=== PATIENT | male | born 1995 | race Caucasian/White ===

== ENCOUNTER 2024-08-06 17:34 | Emergency (ER) | payer OTHER, SELFPAY ==
[2024-08-06] VITALS (24 sets, daily range): BP systolic 106–147; BP diastolic 69–110; PULSE 78–104; RESP 7–26; TEMP 36.9; O2SAT 93–100; BMI 26.0
--- NOTE | 2024-08-06 18:07 | ED_ITS ---
HPI - Arrhythmia/Palpitations General Chief Complaint: Arrhythmia/Palpitations Stated Complaint: Heart Flutter Time Seen by Provider: 08/06/24 17:46 History of Present Illness HPI narrative: This 29-year-old male comes in with atrial fibrillation and rapid ventricular response. He states that he has a family history of this and had a 1st episode when he was 21 years old. He has been cardioverted in the past. At age 25 he had an ablation and he has not had any recurrent events until now. He states that he rarely takes alcohol but did have some kind of reunion constitution party 2 days ago and did have 8 or 9 drinks over the course of the day. He reports that he exercises most every day without any difficulty. He is otherwise in good health. He does not report any chest pain, lightheadedness, or shortness of breath. He states that he knows that this started last evening as he could feel his heart being irregular at that time. Related Data Previous Rx's ?Medication ?Instructions ?Recorded azithromycin 250 mg tablet See Rx Instructions PO .COMPLEX #6 05/03/23 (Zithromax Z-Sukhdev) tabs prednisone 20 mg tablet 20 mg PO QDAY cough #12 tabs 05/03/23 apixaban 5 mg (74 tabs) tablets in See Rx Instructions PO .COMPLEX 08/06/24 a dose pack (ULURU DVT-PE Treat #74 ea 30D Start) Allergies Allergy/AdvReac Type Severity Reaction Status Date / Time No Known Drug Allergies Allergy Verified 05/03/23 17:39 Review of Systems Status of ROS: Reports: 10 or more systems reviewed and unremarkable except as noted in History and below Narrative: Constitutional: No fevers, no weight gain or loss. Eyes: No discharge. No vision changes. HENT: No congestion, no sore throat, no ear pain. Cardiovascular: No chest pain. Respiratory: No shortness of breath, no wheezes, no cough. Gastrointestinal: No abdominal pain, no vomiting, no diarrhea. Genitourinary: No dysuria, no hematuria. Musculoskeletal: Normal range of motion. Skin: No rashes, no pruritis. Neurological: No dizziness, weakness, sensory change, speech change. Endo/Heme/Allergies: No bruising or bleeding. No polydipsia. Pysch: no suicidality, no anxiety, no insomnia. All other systems reviewed and are negative. Exam Narrative: Exam Narrative: Constitutional: Well-developed, well-nourished, no acute distress. HEENT: Normocephalic, atraumatic. Neck: Normal range of motion. Nontender. Supple. Heart: Irregular. No murmurs. Tachycardia. Intact distal pulses. Lungs: Clear to auscultation. No chest discomfort. No wheezes, rhonchi, or rales. Abdomen: Normal bowel sounds. Nontender. No rebound tenderness. Genitalia: Deferred. Back: No midline tenderness. Normal range of motion. Extremities: Normal range of motion. No injury. Skin: Intact. No rash. Warm. No erythema or pallor. Neurologic: No altered sensation. No weakness. Alert and oriented. Psychiatric: No suicidality. No anxiety or depression. No insomnia. Nursing notes and vitals signs are reviewed. Const: Vital Signs, click to edit/add: Vital Signs - 24 hr 08/06/24 17:43 08/06/24 18:03 08/06/24 18:11 Temperature 98.5 F Pulse Rate 78 80 Pulse Rate [Right Pulse Oximeter] 96 Respiratory Rate 16 Blood Pressure 147/94 H Blood Pressure [Ri ght Upper Arm] 134/79 Pulse Oximetry 98 100 100 Oxygen Delivery Me od Room Air 08/06/24 18:15 08/06/24 18:19 08/06/24 18:28 Temperature Pulse Rate 80 87 90 Pulse Rate [Right Pulse Oximeter] Respiratory Rate Blood Pressure 116/90 H 127/110 H Blood Pressure [Ri ght Upper Arm] Pulse Oximetry 100 100 100 Oxygen Delivery Sd thod 08/06/24 18:30 08/06/24 18:32 08/06/24 18:33 Temperature Pulse Rate 89 89 86 Pulse Rate [Right Pulse Oximeter] Respiratory Rate Blood Pressure 123/71 Blood Pressure [Ri ght Upper Arm] Pulse Oximetry 100 100 98 [facility] 08/06/24 18:45 08/06/24 18:49 08/06/24 19:00 Temperature Pulse Rate 81 94 92 Pulse Rate [Right Pulse Oximeter] Respiratory Rate Blood Pressure 123/94 H Blood Pressure [Ri ght Upper Arm] Pulse Oximetry 98 100 98 Oxygen Delivery Sd thod 08/06/24 19:15 08/06/24 19:18 08/06/24 19:24 Temperature Pulse Rate 90 104 H 88 Pulse Rate [Right Pulse Oximeter] Respiratory Rate 20 10 L Blood Pressure 137/102 H 108/77 Blood Pressure [Ri ght Upper Arm] Pulse Oximetry 100 100 98 Oxygen Delivery Me thod 08/06/24 19:25 08/06/24 19:27 08/06/24 19:30 Temperature Pulse Rate 94 90 90 Pulse Rate [Right Pulse Oximeter] Respiratory Rate 24 22 26 H Blood Pressure 118/73 107/69 Blood Pressure [Ri ght Upper Arm] Pulse Oximetry 93 99 99 Oxygen Delivery Me thod 08/06/24 19:32 Temperature Pulse Rate 87 Pulse Rate [Right Pulse Oximeter] Respiratory Rate 7 L Blood Pressure 111/72 Blood Pressure [Ri ght Upper Arm] Pulse Oximetry 98 Oxygen Delivery Me thod Course Vital Signs Vital signs: Initial Vital Signs Temperature 98.5 F 08/06/24 17:43 Temperature Source Temporal Artery Scan 08/06/24 17:43 Pulse Rate 96 08/06/24 17:43 Pulse Rhythm Irregular 08/06/24 17:43 Pulse Strength 3+ Normal 08/06/24 17:43 Respiratory Rate 16 08/06/24 17:43 Blood Pressure 134/79 08/06/24 17:43 Blood Pressure Mean 97 08/06/24 17:43 Blood Pressure Position Sitting 08/06/24 17:43 Pulse Oximetry 98 08/06/24 17:43 Oxygen Delivery Method Room Air 08/06/24 17:43 Vital Signs Temperature 98.5 F 08/06/24 17:43 Pulse Rate 96 08/06/24 17:43 Respiratory Rate 16 08/06/24 17:43 Blood Pressure 134/79 08/06/24 17:43 Pulse Oximetry 98 08/06/24 17:43 Oxygen Delivery Method Room Air 08/06/24 17:43 Temperature 98.5 F 08/06/24 17:43 Pulse Rate 87 08/06/24 19:32 Respiratory Rate 7 L 08/06/24 19:32 Blood Pressure 111/72 08/06/24 19:32 Pulse Oximetry 98 08/06/24 19:32 Oxygen Delivery Method Room Air 08/06/24 17:43 Medications Administered Medications: Discontinued Medications Generic Name Dose Route Start Last Admin Trade Name Freq PRN Reason Stop Dose Admin Diltiazem HCl 20 mg 08/06/24 18:06 08/06/24 18:20 Diltiazem 5 Mg/Ml Inj IVP 08/06/24 18:07 20 mg ONCE ONE Administration Propofol 400 mg 08/06/24 19:11 08/06/24 19:34 Propofol 10 Mg/Ml Inj IVP 08/06/24 19:12 250 mg ONCE ONE Administration MDM - Arrhythmia/Palpitations MDM Narrative Medical decision making narrative: This patient comes in with atrial fibrillation and rapid ventricular response. He has had episodes of this in the past. He states that he noted his heart palpitating last evening and is quite certain this is when his symptoms started. An IV was established and labs are acquired. There are no significant findings and his labs that explain his current rate and rhythm. He did receive 20 mg of diltiazem which brought rate control but he continues in atrial fibrillation. The patient is interested in synchronized cardioversion. After acquiring informed consent the patient did receive propofol in the amount of [address] Chris reddy. 1 attempt of synchronized cardioversion at 150 joules of energy was successful to return him to normal sinus rhythm. The patient tolerated this procedure well. He did not need any respiratory support and maintained normal vital signs. He did receive an oral dose of Eliquis and a prescription for the next month. Lab Data Labs: Lab Results 08/06/24 Range/Units 18:10 WBC 7.24 (4.50-11.00) K/uL RBC 6.68 H (4.30-5.90) m/uL Hgb 19.4 H (13.5-17.5) gm/dL Hct 57.7 H (37.0-53.0) % MCV 86 (80-100) fL MCH 29 (26-34) pg MCHC 34 (32-36) gm/dL RDW Coeff of Zenon 12.2 (11.5-15.5) % Plt Count 214 (140-440) K/uL Neut % (Auto) 43.9 (42.0-72.0) % Lymph % (Auto) 41.6 (20-44) % Pender % (Auto) 6.1 (0.0-11.0) % Eos % (Auto) 8.1 H (0.0-7.0) % Baso % (Auto) 0.3 (0.0-3.0) % Neut # (Auto) 3.18 (1.7-7.0) K/uL Lymph # (Auto) 3.01 H (0.90-2.90) K/uL Pender # (Auto) 0.40 (0.00-0.90) K/UL Eos # (Auto) 0.60 H (0.00-0.50) K/uL Baso # (Auto) 0.02 (0.00-0.30) K/uL Abs Immat Gran (auto) 0.00 (0.00-0.30) K/uL Imm/Tot Granulo (auto) 0.0 % Sodium 141 (135-149) mmol/L Potassium 3.5 L (3.6-5.1) mmol/L Chloride 104 (96-114) mmol/L Carbon Dioxide 26 (20-32) mmol/L Anion Gap 11 (7-15) mEq/L BUN 28 H (5-24) mg/dL Creatinine 1.4 (0.5-1.5) mg/dL Estimated Creat Clear 102.46 Estimated GFR 71 ml/min Glucose 121 H (60-115) mg/dL Calcium 9.5 (8.4-10.6) mg/dL Magnesium 2.2 (1.5-2.6) mg/dL ECG Data Attestation: I personally reviewed and interpreted this ECG as follows: Interpretation: Atrial fibrillation with rapid ventricular response, rate is 157 beats per minute. There are no specific ST or T-wave abnormalities. Discharge Plan Discharge Clinical Impression: Atrial fibrillation with rapid ventricular response Patient Disposition: Home w/ Parent or Adult Condition: Improved Additional Instructions: Continue current plans. Follow up with Cardiology as needed. Return if symptoms are recurrent. Prescriptions: New Eliquis DVT-PE Treat 30D Start 5 mg (74 tabs) tablets,dose pack See Rx Instructions PO .COMPLEX Qty: 74 0RF Rx Instructions: orally per package directions No Action azithromycin [Zithromax Z-Sukhdev] 250 mg tablet See Rx Instructions PO .COMPLEX Qty: 6 0RF Rx Instructions: For 250 mg dose pack: take 500 mg today (day 1), then 250 mg for 4 days (days 2-5) PO prednisone 20 mg tablet 20 mg PO QDAY Qty: 12 0RF Rx Instructions: 3 po as single dose days 1-2, 2 po as single dose days 3-4, 1 po days 5-6, the discontinue. Follow Up/Referrals: Provider,Not a Local [Primary Care Provider] - Stand Alone Forms: [email or web address] Info Instructions
[2024-08-06 18:20] LABS: Basophils Absolute Auto 0.02 K/uL (0.00-0.30); Basophils Percent Auto 0.3 % (0.0-3.0); Eosinophils Percent Auto 8.1 % (0.0-7.0); Hematocrit 57.7 % (37.0-53.0); Hemoglobin* 19.4 gm/dL (13.5-17.5); Lymphocytes Absolute Auto 3.01 K/uL (0.90-2.90); Lymphocytes Percent Auto 41.6 % (20-44); Mean Corpuscular HGB Conc 34 gm/dL (32-36); Mean Corpuscular Hemoglobin 29 pg (26-34); Mean Corpuscular Volume 86 fL (80-100); Monocytes Percent Auto 6.1 % (0.0-11.0); Neutrophils Absolute Auto 3.18 K/uL (1.7-7.0); Neutrophils Percent Auto 43.9 % (42.0-72.0); Platelet Count* 214 K/uL (140-440); RDW Coefficient of Variation % 12.2 % (11.5-15.5); Red Blood Count 6.68 m/uL (4.30-5.90); White Blood Count* 7.24 K/uL (4.50-11.00)
[2024-08-06] MEDS: dilTIAZem 5 MG/ML inj 20 MG IVP (18:20)
[2024-08-06 18:24] LABS: Slide Review Reflex No
[2024-08-06 18:44] LABS: Chloride* 104 mmol/L (96-114); Sodium* 141 mmol/L (135-149)
[2024-08-06 18:45] LABS: Potassium* 3.5 mmol/L (3.6-5.1)
[2024-08-06 18:47] LABS: Creatinine* 1.4 mg/dL (0.5-1.5); Est. Creatinine Clearance* 102.46; Estimated Glomerular Filt Rate 71 ml/min
[2024-08-06 18:48] LABS: Anion Gap 11 mEq/L (7-15); Blood Urea Nitrogen* 28 mg/dL (5-24); Calcium* 9.5 mg/dL (8.4-10.6); Carbon Dioxide* 26 mmol/L (20-32); Glucose* 121 mg/dL (60-115); Magnesium* 2.2 mg/dL (1.5-2.6)
[2024-08-06] MEDS: PROPOFOL 10 MG/ML INJ 400 MG IVP (19:34)
[2024-08-06] MEDS: APIXABAN 5 MG TABLET 10 MG PO (20:00)
--- OUTSIDE RECORDS SUMMARY | 2024-08-07 00:04 | XMS_ITS | Clinical Summary ---
Author Organization [facility] Address [address] [place] [address] Care Team Providers Care Conductor Yard Name Role Phone Stuart Bowman MD Unavailable [phone] Jovanna Mendoza MD Primary Care Provider [phone] Allergies No known active allergies Medications loratadine (CLARITIN) 10 mg oral tablet TAKE 1 TABLET BY MOUTH EVERY DAY 30 tablet 11 02/10/2022 Active olopatadine 0.1% (PATANOL) 0.1 % Opht ophthalmic (EYE) solution INSTILL 1 DROP INTO EACH EYE TWICE A DAY 5 mL 3 02/10/2022 Active Active Problems Problem Noted Date Diagnosed Date Paroxysmal A-fib 07/28/2022 PAF (paroxysmal atrial fibrillation) 05/28/2022 Overview (05/28/2022): Added automatically from request for surgery [id number] Primary insomnia 10/24/2017 Social anxiety disorder 09/29/2017 Schizoaffective disorder, depressive type 2017 Persistent atrial fibrillation 05/27/2017 Overview (11/29/2018): S/p cardioversion, & LOOP - 2018 Nonischemic cardiomyopathy 04/22/2017 Overview (11/29/2018): 03/2017 EF decreased 45% echo 2018 nl EF Beth-Danlos syndromen partial Overview (11/29/2018): There is a note of this in the 2006 pediatric note, apparently evaluated by specialist when younger. May have partial syndrome Resolved Problems Problem Noted Date Diagnosed Date Resolved Date Psychosis 10/28/2017 11/04/2017 Suicidal ideation 09/25/2017 10/07/2017 Paroxysmal atrial fibrillation 06/07/2017 10/24/2017 Cardiology follow-up encounter 04/22/2017 10/24/2017 Family history of atrial fibrillation 04/22/2017 10/28/2017 Immunizations Name Administration Dates Next Due DTaP (Infanrix) 02/01/2002, 8,1997,05/30,1997 HIB 05/15/1998, 8,1997,04/03 HPV Quadrivalent 10/07/2014,03/14/2014, 3 Hep A Pediatric 03/12/2013,03/07/2012 Hep B Pediatric 1997,1997,1997 Influenza live intranasal (F luMist Quadrivalent) 03/12/2013,03/07/2012,03/04/2011,03/21 Influenza recombinant (FluBl ok Quadrivalent PF) 04/06/2017,03/14/2014,06/23/1998,05/15 MMR 11/04/2000,02/12/1998 Meningococcal MCV4P 03/12/2013,01/22/2008 Pfizer 12+ Yrs Monovalent CO VID Vaccine (purple cap) 05/02/2021 Polio IPV 02/01/2002, 8,1997,04/03 Polio OPV 1997 Tdap 11/30/2018,01/22/2008 Varicella 01/22/2008,02/12/1998 Family History Medical History Relation Comments Allergies Father Asthma Father High Cholesterol Father Irregular Heart Rhythm Father Afib Depression Maternal Grandfather Diabetes Maternal Grandfather Heart Disease Maternal Grandfather High Blood Pressure Maternal Grandfather High Cholesterol Maternal Grandfather Thyroid Disease Maternal Grandfather Coronary Heart Disease Maternal Grandmother Depression Maternal Grandmother Diabetes Maternal Grandmother High Blood Pressure Maternal Grandmother High Cholesterol Maternal Grandmother Irregular Heart Rhythm Maternal Grandmother Afib Stroke Maternal Grandmother Thyroid Disease Maternal Grandmother Irregular Heart Rhythm Mother Afib Asthma Paternal Grandfather Blood Disorder Paternal Grandfather Coronary Heart Disease Paternal Grandfather Heart Disease Paternal Grandmother Pacemaker Paternal Grandmother Relation Status Comments Father Alive Maternal Grandfather Maternal Grandmother (Age 80's) Mother Alive Other Alive Paternal Grandfather blood clott ing disorder Paternal Grandmother Alive Social History Tobacco Use Types Packs/Day Years Used Date Smoking Tobacco: Never Smokeless Tobacco: Never Tobacco Cessation:Counseling Given: Not Answered Comments:never Alcohol Use Standard Drinks/Week Comments Yes 0 (1 standard drink = 0.6 oz pur e alcohol) socially PHQ-2 Answer Date Recorded PHQ-2 Score 10 05/31/2018 Sex and Gender Information Value Date Recorded Sex Assigned at Not on file Legal Sex Male 7:36 AM CDT Gender Identity Not on file Sexual Orientation Not on file 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 Not on file Not on f ile Last Filed Vital Signs Vital Sign Reading Time Taken Comments Blood Pressure 124/84 11/11/2022 10:29 AM CDT ma nual Pulse 58 11/11/2022 10:29 AM CDT Temperature 36.2 C (97.1 F) 11/10/2022 5:10 PM CDT Respiratory Rate 21 07/28/2022 3:15 PM PATIENT SCHEDULING COORDINATOR Oxygen Saturation 99% 11/10/2022 5:10 PM CDT Inhaled Oxygen Concentration - - Weight 89.4 kg (197 lb 3.2 oz) 11/11/2022 10:29 AM CDT Height 195.6 cm (6' 5) 11/11/2022 10:29 AM CDT Body Mass Index 23.38 11/11/2022 10:29 AM CDT Plan of Treatment Health Maintenance Due Date Last Done Comments Hepatitis C Screening 1997 Anxiety Follow-Up (HATTIE-7) 1998 Depression Assessment (PHQ-2) 1998 COVID-19 Vaccine ( season) 2024 05/02/2021 Influenza Vaccine (#1) 2024 7, 03/14/2014, 03/12/2013, Additional history exists Adult Tetanus Booster 11/30/2028 11/30/2018, 008 RSV Vaccines (1 - 1-dose 75+ series) 01/28/2072 HPV Vaccine Completed 09/23/2016 (Prev iously completed), 10/07/2014, 03/14/2014, Additional history exists Pneumococcal Vaccine Aged Out No long er eligible based on patient's age to complete this topic Medical Devices Implanted Type Area Agronomy Instructor Device Identifier Shelf Expiration Date Model / Serial / Lot Perclose Prostyle - [id number] Implanted:Qty: 3 on 07/28/2022 by Adolfo Dao MD at [facility] Supply [employer] [id number] 04/16/2024 16786 -[id number] / [id number] [place] [address] R Advance Directives For more information, please contact: [phone] * Full Code (Latest Code Status on File) Date Activated Date Inactivated Comments 09/24/2017 2:12 PM 10/11/2017 10:20 PM Question Answer Comments How was code status determined? Patient Care Teams Conductor Yard Relationship Specialty Start Date End Date Stuart Bowman MD PCP - Import And Export Clerk Cardiology 05/27/17 Jovanna Mendoza MD [address] [facility] [place] [address] PCP - General 04/13/22
--- OUTSIDE RECORDS SUMMARY | 2024-08-07 00:05 | XMS_ITS | Encounter Summary ---
Author Organization [facility] Address [address] [place] [address] Care Team Providers Care Research Spec Name Role Phone Stuart Bowman MD Unavailable [phone] Jovanna Mendoza MD Primary Care Provider [phone] Encounter Details Date Type Department Care Team (Late st Contact Info) Description 05/28/[address] [facility] [place] [address] [facility] [address] [place], [place] [id number] FruechteKimberly M, OSTEOPATHIC MEDICINE TEACHER, PACKAGE WORKER [address] [facility] [address] [place], [place] [id number] Social History Tobacco Use Types Packs/Day Years Used Date Smoking Tobacco: Never Smokeless Tobacco: Never Comments:never Alcohol Use Standard Drinks/Week Comments Yes 0 (1 standard drink = 0.6 oz pur e alcohol) socially PHQ-2 Answer Date Recorded PHQ-2 Score 05/31/2018 Sex and Gender Information Value Date Recorded Sex Assigned at Not on file Legal Sex Male 7:36 AM CDT Gender Identity Not on file Sexual Orientation Not on file 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 No / Unsure 05/28/2022 1:45 PM INTELLIGENCE SUPPORT OFFICER documented as of this encounter Plan of Treatment Not on file documented as of this encounter Visit Diagnoses Not on filedocumented in this encounter Care Teams Research Spec Relationship Specialty Start Date End Date Stuart Bowman MD PCP - Tin Pot Operator Cardiology 05/27/17 Jovanna Mendoza MD [address] [facility] [address] [facility] [place] [address] PCP - General 04/13/22 documented as of this encounter
--- OUTSIDE RECORDS SUMMARY | 2024-08-07 00:05 | XMS_ITS | Encounter Summary ---
Author Organization [facility] Address [address] [place] [address] Care Team Providers Care Spool Carrier Name Role Phone Stuart Bowman MD Unavailable [phone] Jovanna Mendoza MD Primary Care Provider [phone] Encounter Details Date Type Department Care Team (Latest Contact Info) Description 05/28/2022 Prep For Procedure [facility] [address] [facility] [address] [place], [place] [id number] FrutavaresteKimberly M, SPOUTER, RAILROAD CAR LETTERER [address] [facility] [address] [place] [address] PAF (paroxysmal atrial fibrillation) (HCC) (yes) (HCC) (Primary Dx) Social History Tobacco Use Types Packs/Day Years [...] Coronavirus/COVID-19? No / Unsure 05/28/2022 1:45 PM BULK FILLER documented as of this encounter Plan of Treatment Not on file documented as of this encounter Visit Diagnoses Diagnosis PAF (paroxysmal atrial fibrillation) (HCC)- Primary Atrial fibrillation documented in this encounter Care Teams Spool Carrier Relationship Specialty Start Date End Date Stuart Bowman MD PCP - Ostrich Farmer Cardiology 05/27/17 Jovanna Mendoza MD [address] [facility] [address] [facility] [place] [address] PCP - General 04/13/22 documented as of this encounter
--- OUTSIDE RECORDS SUMMARY | 2024-08-07 00:05 | XMS_ITS | Encounter Summary ---
Author Organization [facility] Address [address] [place] [address] Care Team Providers Care Prison Guard Supervisor Name Role Phone Stuart Bowman MD Unavailable [phone] Jovanna Mendoza MD Primary Care Provider [phone] Encounter Details Date Type Department Care Team (Late st Contact Info) Description 05/28/2022 Prep For Procedure [facility] - [place] [address] [facility] [address] [place], [place] [id number] FruechteKimberly M, HAMMERER TAB, DENTURE WAXER [address] [facility] [address] [place], [place] [id number] Social History Tobacco Use Types Packs/Day Years [...] Coronavirus/COVID-19? No / Unsure 05/28/2022 1:45 PM REMOTE RUBY ON RAILS DEVELOPER documented as of this encounter Plan of Treatment Not on file documented as of this encounter Visit Diagnoses Not on filedocumented in this encounter Care Teams Prison Guard Supervisor Relationship Specialty Start Date End Date Stuart Bowman MD PCP - Aircraft Captain Cardiology 05/27/17 Jovanna Mendoza MD [address] [facility] [address] [facility] [place] [address] PCP - General 04/13/22 documented as of this encounter
--- OUTSIDE RECORDS SUMMARY | 2024-08-07 00:05 | XMS_ITS | Referral Summary ---
Author Organization [facility] Address [address] [place] [address] Care Team Providers Care Drafter Engineering Name Role Phone Stuart Bowman MD Unavailable [phone] Jovanna Mendoza MD Primary Care Provider [phone] Allergies No known active allergies Medications loratadine [...] (05/28/2022): Added automatically from request for surgery [id number] Primary insomnia 10/24/2017 Social anxiety disorder 09/29/2017 [...] Polio OPV 1997 Tdap 11/30/2018,01/22/2008 Varicella 01/22/2008,02/12/1998 Social History Tobacco Use Types Packs/Day Years [...] CDT Respiratory Rate 21 07/28/2022 3:15 PM PLATE INSPECTOR Oxygen Saturation 99% 11/10/2022 5:10 PM CDT Inhaled Oxygen Concentration - - Weight 89.4 kg (197 lb 3.2 oz) 11/11/2022 10:29 AM CDT Height 195.6 cm (6' 5) 11/11/2022 10:29 AM CDT Body Mass Index 23.38 11/11/2022 10:29 AM CDT Plan of Treatment Not on file Medical Devices Implanted Type Area Business Process Specialist Device Identifier Shelf Expiration Date Model / Serial / Lot Perclose Prostyle - [id number] Implanted:Qty: 3 on 07/28/2022 by Adolfo Dao MD at [facility] Supply [employer] [id number] 04/16/2024 68974 -[id number] / / [id number] Insurance [facility] [address] [address] [facility] [place] [place] [address] [facility] [place] [place] [address] [facility] [place]S [address] [place] [id number] [place] [address] [facility] [place] [id number] [place] [id number] R Advance Directives For more information, please contact: [phone] * Full Code (Latest Code Status on File) Date Activated Date Inactivated Comments 09/24/2017 2:12 PM 10/11/2017 10:20 PM Question Answer Comments How was code status determined? Patient Care Teams Drafter Engineering Relationship Specialty Start Date End Date Stuart Bowman MD PCP - Tool Or Die Drawing Checker Cardiology 05/27/17 Jovanna Mendoza MD [address] [facility] [address] [place] [address] PCP - General 04/13/22
--- OUTSIDE RECORDS SUMMARY | 2024-08-07 00:06 | XMS_ITS | Clinical Summary ---
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 May have partial syndrome Primary insomnia 10/24/2017 Social anxiety disorder 09/29/2017 Schizoaffective disorder, depressive type 2017 Persistent atrial fibrillation 05/27/2017 Overview (02/24/2024): S/p cardioversion, & LOOP - 2018 Nonischemic cardiomyopathy 04/22/2017 Overview (02/24/2024): 03/2017 EF decreased 45% echo 2018 nl EF Social History Tobacco Use Types Packs/Day Years Used Date Smoking Tobacco: Never Smokeless Tobacco: Never Tobacco Cessation:Counseling Given: Yes Alcohol Use Standard Drinks/Week Comments Not Currently 0 (1 standard drink = 0.6 oz pur e alcohol) Social Connections Answer Date Recorded Frequency of Communication with Friends and Fami ly Not on file 02/24/2024 Sex and Gender Information Value Date Recorded Sex Assigned at Not on file Legal Sex Male 11:25 AM CDT Gender Identity Not on file Sexual Orientation Not on file Obstetrics History Last Filed Vital Signs Vital Sign Reading Time Taken Comments Blood Pressure 120/76 02/24/2024 2:16 PM CDT Pulse 70 02/24/2024 2:16 PM CDT Temperature - - Respiratory Rate - - Oxygen Saturation 97% 02/24/2024 2:16 PM CDT Inhaled Oxygen Concentration - - Weight 96.4 kg (212 lb 9.6 oz) 02/24/2024 2:16 P M CDT Height 198.1 cm (6' 6) 02/24/2024 2:16 PM CDT Body Mass Index 24.57 02/24/2024 2:16 PM CDT Plan of Treatment Health Maintenance Due Date Last Done Comments Tdap 01/28/2008 Depression screening for age 12+ 2009 HIV for age 15-65 01/28/2012 Hepatitis C screening for age 18-79 2015 Pneumococcal series for age 6-49 (1 of 2 - PCV) 01/28/2016 Tetanus booster 2017 COVID-19 vaccine series (2 - season) 2024 05/02/2021 Influenza for age 9-49 03/18/2024 BMI (ht and wt on same day) for age 18+ 02/23/2025 0 02/24/2024, 12/01/2018 Insurance [facility] [id number] [place] [address] Care Teams Training And Development Coordinator Relationship Specialty Start Date End Date Pcp, No . PCP - General 02/24/24
--- OUTSIDE RECORDS SUMMARY | 2024-08-07 00:06 | XMS_ITS | Encounter Summary ---
Author Organization [facility] Address [address] [place] [address] Care Team Providers Care Braille Operator Name Role Phone Stuart Bowman MD Unavailable [phone] Jovanna Mendoza MD Primary Care Provider [phone] Encounter Details Date Type Department Care Team (Late st Contact Info) Description 05/28/[address] 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
== END 2024-08-06 20:07 | disposition home or self-care (01) ==
PROVIDERS: Emergency Provider Emergency Medicine Emergency Medical Services
DX: I48.91 Unspecified atrial fibrillation (principal)
CPT/HCPCS: 92960; 36415; 80048; 83735; 85025; 93005; 96374; 99284; 99285; A9270; J2704